=== PATIENT | male | born 1985 | race Caucasian/White ===

== ENCOUNTER 2024-01-21 00:53 | Emergency (ER) | payer SELFPAY ==
[2024-01-21 01:01] VITALS: BP 158/81; PULSE 57; RESP 20; TEMP 36.4; O2SAT 100
[2024-01-21 04:14] LABS: Basophils Absolute Auto 0.1 K/mm3 (0.0-0.1); Basophils Percent Auto 0.3 % (0.2-1.2); Eosinophils Percent Auto 0.1 % (0-4.4); Hematocrit 44.4 % (42.0-52.0); Hemoglobin 15.9 g/dL (14.0-18.0); Immature Granulocyte Absolute 0.08 K/mm3 (0.00-0.031); Immature Granulocyte Percent A 0.5 % (0-0.5); Lymphocytes Absolute Auto 0.99 K/mm3 (0.9-3.2); Lymphocytes Percent Auto 6.2 % (18.3-44.2); Mean Corpuscular HGB Conc 35.8 g/dl (32-36); Mean Corpuscular Volume 86.5 fl (80-100); Monocytes Absolute Auto 1.1 K/mm3 (0.1-0.6); Monocytes Percent Auto 6.6 % (2.6-8.5); Neutrophils Absolute Auto 13.8 K/mm3 (1.3-6.7); Neutrophils Percent Auto 86.3 % (45.5-73.1); Platelet Count Result 170 k/mm3 (150-375); Red Blood Count 5.13 M/mm3 (4.6-6.20); Red Cell Distribution Width 11.9 % (11.5-14.5); White Blood Count 15.9 K/mm3 (4.5-10.0)
[2024-01-21] MEDS: Please add drug allergy info to patient profile. 1 EACH XX (04:18)
--- NOTE | 2024-01-21 04:19 | PC.NURSE ---
Patient tells EDP Dr. Marques and nursing staff at bedside that he does not want medication through his IV. Patient agrees to oral medication for his discomfort in his abdomen.
--- NOTE | 2024-01-21 04:20 | ED_ITS ---
HPI - Abdominal Pain General Chief Complaint: Abdominal Pain Stated Complaint: abd pain Time Seen by Provider: 01/21/24 03:39 History of Present Illness HPI narrative: 38-year-old otherwise healthy male who is primary [place]ib[place]ian speaking and does not speak Lithuanian. Today presents to the emergency room with chief complaint of periumbilical and epigastric pain that was sudden in onset after eating earlier today. No history of abdominal surgeries in the past, no history of appendicitis, no nausea or vomiting or diarrhea. No fever or chills. He states that since his arrival to the emergency department he has had improvement in his pain and now to some mild cramping. Declined any IV medications. Translation services through [employer] given that our e commerce web developer services are down and the Internet is off line throughout the area at this time. Related Data Allergies Allergy/AdvReac Type Severity Reaction Status Date / Time No Known Allergies Allergy Verified 01/21/24 04:19 Review of Systems 2 Review of Systems: As reviewed above Exam 2 Narrative: GENERAL: [Well-appearing, well-nourished, and in no acute distress.] HEAD: [Normocephalic, atraumatic.] EYES: [PERRLA and EOMI.] ENT: Nares clear, no rhinorrhea or epistaxis. Mucous membranes moist. NECK: Supple. CHEST: [Clear to auscultation. No respiratory distress.] HEART: [Regular rate and rhythm]. No murmur heard. [Normal peripheral pulses.] ABDOMEN: [Soft, nondistended], minimally tender to palpation near the epigastrium but no rebound or guarding, no signs of peritonitis EXTREMITIES: Normal range of motion. [No edema.] SKIN: Warm, dry, no rash. NEURO: [No focal deficits]. Alert and oriented [x3.] PSYCH: [Normal mood and affect.] Course Vital Signs Vital signs: Vital Signs Temperature 36.4 C L 01/21/24 01:01 Pulse Rate 57 L 01/21/24 01:01 Respiratory Rate 20 01/21/24 01:01 Blood Pressure 158/81 H 01/21/24 01:01 Pulse Oximetry 100 01/21/24 01:01 Oxygen Delivery Room Air 01/21/24 01:01 Temperature 36.5 C 01/21/24 05:50 Pulse Rate 66 01/21/24 05:50 Respiratory Rate 17 01/21/24 05:50 Blood Pressure 127/74 01/21/24 05:50 Pulse Oximetry 100 01/21/24 05:50 Oxygen Delivery Room Air 01/21/24 01:01 MDM - Abdominal Pain MDM Narrative Medical decision making narrative: 38-year-old otherwise healthy appearing male who is primarily [place]ib[place]ian speaking. Not any acute distress and otherwise appears well. Nontoxic and not ill-appearing. Vital signs within normal limits aside from some blood pressure elevation at 158/81 with unknown chronicity. No tachycardia, hypoxia, fever or significant physical exam finding concerns. He has some minimal tenderness in the epigastrium and states that he had some nausea about 3 hours ago and vomited 1 time. States his pain is significantly improved and is declining any analgesics medications or IV medications at this time. Overall he is well- appearing but he did agree to laboratory studies and evaluation. CBC, CMP, lipase ordered. Insert presently for gastritis, gastroenteritis, pancreatitis, less likely appendicitis or other acute intra-abdominal process. He declined fluids and IV medications. Was okay getting oral medications he was given Pepcid Maalox. Workup showed a slight leukocytosis of 15.9 but no anemia or platelet concerns. Electrolytes within normal limits, normal renal and hepatic function panel, normal glucose. Negative lipase. I which re-evaluated the patient and discussed the laboratory results over him with a slot machine repairer. He had no pain whatsoever at this time and states all his symptoms have since resolved. I did inform of the elevated white count but given his resolution of symptoms and repeat exam showing no concerns as well as repeat vitals being okay I believe he is stable for discharge home at this time with regular PCP follow-up. Patient verbalized understanding and will follow up with his regular doctor or return if he has any new or worsening concerns such as recurrence of his pain or any new symptoms. Patient stable for discharge at this time. Medical Records Attestation: I reviewed the patient's medical records. Lab Data Attestation: I reviewed the patient's lab results. 01/21/24 04:09 01/21/24 04:09 Labs: Lab Results 01/21/24 Range/Units 04:09 WBC 15.9 H (4.5-10.0) K/mm3 RBC 5.13 (4.6-6.20) M/mm3 Hgb 15.9 (14.0-18.0) g/dL Hct 44.4 (42.0-52.0) % MCV 86.5 (80-100) fl MCH 31.0 (26-34) pg MCHC 35.8 (32-36) g/dl RDW 11.9 (11.5-14.5) % Plt Count 170 (150-375) k/mm3 MPV 11.0 H (7.4-10.4) fl Immature Gran % (Auto) 0.5 (0-0.5) % Neut % (Auto) 86.3 H (45.5-73.1) % Lymph % (Auto) 6.2 L (18.3-44.2) % [place] % (Auto) 6.6 (2.6-8.5) % Eos % (Auto) 0.1 (0-4.4) % Baso % (Auto) 0.3 (0.2-1.2) % Lymph # (Auto) 0.99 (0.9-3.2) K/mm3 [place] # (Auto) 1.1 H (0.1-0.6) K/mm3 Eos # (Auto) 0.0 (0-0.3) K/mm3 Baso # (Auto) 0.1 (0.0-0.1) K/mm3 Abs Immat Gran (auto) 0.08 H (0.00-0.031) K/mm3 Absolute Neuts (auto) 13.8 H (1.3-6.7) K/mm3 Absolute Nucleated RBC 0.000 (0.0-0.012) K/mm3 Nucleated RBC % 0.0 (0.0-0.2) % Sodium 136 L (137-145) mmol/L Potassium 4.2 (3.4-5.0) mmol/L Chloride 101 (98-107) mmol/L Carbon Dioxide 28 (22-30) mmol/L Anion Gap 7 (4-12) mmol/L BUN 21 H (9-20) mg/dL Creatinine 0.80 (0.7-1.3) mg/dL Estim Creat Clear Calc Not Reportable Estimated GFR > 60 (59 - ) Glucose 149 H (65-110) mg/dL Calcium 9.4 (8.4-10.2) mg/dL Total Bilirubin 0.9 (0.2-1.3) mg/dL AST 32 (17-59) U/L ALT 38 (6-50) U/L Alkaline Phosphatase 42 (38-126) U/L Total Protein 8.0 (6.3-8.2) g/dL Albumin 4.8 (3.5-5.1) g/dL Lipase 32 (23-300) U/L Discharge Plan Discharge Clinical Impression: Abdominal pain, Gastroenteritis Instructions: Antibiotic Form Additional Instructions: Please return to the ED if your pain returns or you get any new or worsening symptoms at any time. Patient Language: Ukranian Follow-up/Referrals: UNKNOWN,DOCTOR [Primary Care Provider] - Time of Disposition: 05:46
[2024-01-21 04:24] LABS: Alanine Aminotransferase 38 U/L (6-50); Albumin Level 4.8 g/dL (3.5-5.1); Alkaline Phosphatase 42 U/L (38-126); Anion Gap 7 mmol/L (4-12); Aspartate Amino Transferase 32 U/L (17-59); Bilirubin,Total 0.9 mg/dL (0.2-1.3); Blood Urea Nitrogen 21 mg/dL (9-20); Calcium 9.4 mg/dL (8.4-10.2); Carbon Dioxide 28 mmol/L (22-30); Chloride 101 mmol/L (98-107); Estimated Glomerular Filt Rate > 60; Glucose 149 mg/dL (65-110); Lipase 32 U/L (23-300); Potassium 4.2 mmol/L (3.4-5.0); Sodium 136 mmol/L (137-145)
[2024-01-21] MEDS: MAG HYDROX/AL HYDROX/SIMETH 30 ML UDC PO (04:44)
[2024-01-21] MEDS: FAMOTIDINE 20 MG TABLET PO (04:44)
[2024-01-21 05:50] VITALS: BP 127/74; PULSE 66; RESP 17; TEMP 36.5; O2SAT 100
== END 2024-01-21 05:51 | disposition home or self-care (01) ==
PROVIDERS: Emergency Provider Student in an Organized Health Care Education/Training Program
DX: K52.9 Noninfective gastroenteritis and colitis, unspecified (principal)
CPT/HCPCS: 36415; 80053; 83690; 85025; 96361; 96374; 96375; 99284; A9270